=== PATIENT | female | born 1950 | race Caucasian/White ===

== ENCOUNTER → 2018-10-07 | Outpatient (CLI) | payer MEDICARE | END | disposition home or self-care (01) | LOC: RAH 10:59 | PROVIDERS: ATTEND Orthopaedic Surgery | DX: M19.012 Primary osteoarthritis, left shoulder (principal); M25.712 Osteophyte, left shoulder; M75.102 Unspecified rotator cuff tear or rupture of left shoulder, not specified as traumatic | CPT/HCPCS: 73221 ==

== ENCOUNTER 2018-10-31 05:57 | Day surgery (SDC) | payer MEDICARE ==
[2018-10-28 10:31] VITALS: BP 126/58
[~2018-10-31] VITALS: Ht 152.4 cm; Wt 74.8 kg
[2018-10-31] VITALS (17 sets, daily range): BP systolic 81–128; BP diastolic 49–70
[~2018-10-31 05:57] MED LIST: ARIP5TAB19 PO; B12 PO; BIOT10006 PO; DULO60CA63 PO; ESLI600T PO; ESOM40CA54 PO; FURO40TA5 PO; LEVO50TA11 PO; ROSU20TA30 PO; TOPI100T37 PO
[2018-10-31] MEDS: CEFAZOLIN SODIUM 1 GM VIAL IVP SCH ×2 (08:00→08:45)
--- NOTE | 2018-10-31 08:00 | NUR ---
POTENTIAL FOR INFECTION: NO SHAVING NEEDED TO LEFT SHOULDER STATED PER DEIRDRE BROWN MA, WIPED WITH RAMON: 2% CHLORHEXIDINE GLUCONATE CLOTH PATIENTS PRE-OP SKIN PREP PER DEIRDRE BROWN MA.
[2018-10-31] MEDS ORDERED: EPINEPHRINE 1 MG/ML 30ML VIAL IJ ONE (08:03)
[2018-10-31] MEDS ORDERED: LACTATED RINGERS 1000ML 1,000 ML IV ONE (08:11)
[2018-10-31] MEDS ORDERED: LIDOCAINE PF 2% 5ML ABBOJECT ONE (08:23)
[2018-10-31] MEDS ORDERED: ONDANSETRON HCL 4 MG/2 ML VIAL ONE (08:24)
[2018-10-31] MEDS ORDERED: PROPOFOL 10 MG/ML 20ML VIAL IV ONE (08:24)
[2018-10-31] MEDS ORDERED: ROCURONIUM 10MG/1ML SYR 10 MG/ML ML ONE ×2 (08:24→09:02)
[2018-10-31] MEDS ORDERED: ROPIVACAINE 0.5% 5MG/ML 30ML IJ ONE (08:28)
[2018-10-31] MEDS ORDERED: EPHEDRINE SULFATE 50 MG/ML AMPULE ONE (09:14)
[2018-10-31] MEDS ORDERED: GLYCOPYRROLATE 1 MG/5 ML SYRINGE ONE (10:29)
[2018-10-31] MEDS ORDERED: NEOSTIGMINE 5MG/5ML SYR IV ONE (10:29)
[2018-10-31] MEDS ORDERED: ESMOLOL HCL 10 MG/ML 10 ML VIAL ONE (10:35)
[2018-10-31] MEDS ORDERED: HYDR-4457 PO (10:42)
[2018-10-31] MEDS ORDERED: CEPH500B PO (10:42)
[2018-10-31] MEDS ORDERED: MEPERIDINE-PF 25 MG/ML SYG ONE ×2 (11:04→11:13)
== END 2018-10-31 12:26 | disposition home or self-care (01) ==
LOC: DAH 05:57
PROVIDERS: ATTEND Orthopaedic Surgery
DX: S43.52XA Sprain of left acromioclavicular joint, initial encounter (principal); X58.XXXA Exposure to other specified factors, initial encounter; Y93.9 Activity, unspecified; Y92.89 Other specified places as the place of occurrence of the external cause; Y99.9 Unspecified external cause status; M75.42 Impingement syndrome of left shoulder; M94.212 Chondromalacia, left shoulder; G89.29 Other chronic pain; M25.512 Pain in left shoulder; Z68.32 Body mass index [BMI] 32.0-32.9, adult; F31.9 Bipolar disorder, unspecified; R56.9 Unspecified convulsions; E03.9 Hypothyroidism, unspecified; K21.9 Gastro-esophageal reflux disease without esophagitis; M19.90 Unspecified osteoarthritis, unspecified site; Z79.899 Other long term (current) drug therapy; Z98.51 Tubal ligation status; Z98.890 Other specified postprocedural states; M19.012 Primary osteoarthritis, left shoulder
CPT/HCPCS: 29820; 29822; 29824; 29826; A4218; A4565; A4600; A4649 ×3; A4930 ×2; A6204; G0168; J0171; J0690; J2001; J2175 ×2; J2405; J2704; J2710; J2795; J3490 ×3; J7120

== ENCOUNTER → 2022-06-03 | Outpatient (CLI) | payer MEDICARE ==
[~2022-06-03] MED LIST changes: -ARIP5TAB19 PO; +ARIP5TAB56 PO; +CEPH500B PO; -DULO60CA63 PO; +DULO60CA64 PO; +HYDR-4457 PO; -ROSU20TA30 PO; +ROSU20TA31 PO
== END | disposition home or self-care (01) ==
LOC: RAH 09:19
PROVIDERS: ATTEND Surgery
DX: K44.9 Diaphragmatic hernia without obstruction or gangrene (principal)
CPT/HCPCS: 74240

== ENCOUNTER → 2022-06-24 | Outpatient (CLI) | payer MEDICARE ==
[~2022-06-24] MED LIST changes: +IOHEXOL 350 MG/ML 100ML INFUS..BTL IV ONE
== END | disposition home or self-care (01) ==
LOC: RAH 08:42
PROVIDERS: ATTEND Internal Medicine Cardiovascular Disease
DX: K44.9 Diaphragmatic hernia without obstruction or gangrene (principal); I20.9 Angina pectoris, unspecified; M47.815 Spondylosis without myelopathy or radiculopathy, thoracolumbar region
CPT/HCPCS: 75574; Q9967

== ENCOUNTER → 2022-06-30 | Outpatient (CLI) | payer OTHER ==
[~2022-06-30] VITALS: Ht 27.9 cm; Wt 87.1 kg
[~2022-06-30] MED LIST changes: -IOHEXOL 350 MG/ML 100ML INFUS..BTL IV ONE
== END | disposition home or self-care (01) ==
LOC: DTH 08:56
PROVIDERS: ATTEND Surgery
DX: Z71.3 Dietary counseling and surveillance (principal); E78.00 Pure hypercholesterolemia, unspecified; K21.9 Gastro-esophageal reflux disease without esophagitis; M19.91 Primary osteoarthritis, unspecified site; E66.09 Other obesity due to excess calories; Z68.38 Body mass index [BMI] 38.0-38.9, adult
CPT/HCPCS: 97802

== ENCOUNTER → 2022-08-03 | Outpatient (CLI) | payer OTHER | END | disposition home or self-care (01) | LOC: DTH 09:11 | PROVIDERS: ATTEND Surgery | DX: Z71.3 Dietary counseling and surveillance (principal); E78.00 Pure hypercholesterolemia, unspecified; K21.9 Gastro-esophageal reflux disease without esophagitis; M19.91 Primary osteoarthritis, unspecified site; E66.09 Other obesity due to excess calories; Z68.38 Body mass index [BMI] 38.0-38.9, adult | CPT/HCPCS: 97803 ==

== ENCOUNTER → 2024-08-03 | Outpatient (CLI) | payer MEDICARE ==
[~2024-08-03] MED LIST changes: +ARIP5TAB16 PO; -ARIP5TAB56 PO; -B12 PO; -BIOT10006 PO; -CEPH500B PO; +DULO60CA45 PO; -DULO60CA64 PO; -ESLI600T PO; -ESOM40CA54 PO; +FAMO40TA7 PO; -FURO40TA5 PO; -HYDR-4457 PO; +IOHEXOL-350 75 ML VIAL IV ONE; +PANT40TA54 PO; -ROSU20TA31 PO; +ROSU40 PO
--- NOTE | 2024-08-03 09:47 | HMCIMG ---
CT ABDOMEN/PELVIS W/CONTRAST REASON: DIAPHRAMATIC HERNIA WITHOUT OBSTUCTION OR GANGRENE COMPARISON: None. TECHNIQUE: Images are obtained from lung bases through the symphysis pubis following oral and IV contrast. IV contrast volume was 75 cc Omnipaque [id number]. FINDINGS: Lung bases are clear. There are no focal liver lesions. There are normal-appearing kidneys.. Spleen and pancreas appear unremarkable. The gallbladder appears normal as well. There is a small hiatal hernia containing a portion of the stomach. Bowel loops appear otherwise unremarkable.. The appendix was not separately identified. There is no secondary CT evidence of appendicitis such as appendicolith or phlegmon. There is no evidence of free fluid or intraperitoneal air. There are no focal fluid collections. Aorta and retroperitoneum appear normal as do pelvic soft tissue structures. The anterior abdominal wall is intact. Osseous structures appear unremarkable. IMPRESSION: 1. Small hiatal hernia containing a portion of the stomach. 2. Otherwise unremarkable exam. CT was performed with one or more following dose reduction techniques: automated exposure control, adjustment of the mA and kv according to patient's size, or use of a iterative reconstruction technique.
== END | disposition home or self-care (01) ==
LOC: RAH 08:06
PROVIDERS: ATTEND Student in an Organized Health Care Education/Training Program
DX: K44.9 Diaphragmatic hernia without obstruction or gangrene (principal)
CPT/HCPCS: 74177; Q9967

== ENCOUNTER 2025-01-10 05:42 | Day surgery (SDC) | payer MEDICARE ==
[~2025-01-10] VITALS: Ht 142.2 cm; Wt 55.3 kg
[2025-01-10] VITALS (11 sets, daily range): BP systolic 95–117; BP diastolic 54–80; PULSE 63–83; RESP 15–18; TEMP 97.1–97.5
[~2025-01-10 05:42] MED LIST changes: +BIOT10TA PO; +FURO40TA5 PO; -IOHEXOL-350 75 ML VIAL IV ONE; +POTA-200 PO; +TOPI-258 PO; -TOPI100T37 PO; +[UNRECOGNIZED DRUG - OTHER] PO
[2025-01-10] MEDS ORDERED: 0.9%NACL 1000ML 1,000 ML IV ONE (05:56)
[2025-01-10] MEDS ORDERED: proPOFol 10 MG/ML 20ML VIAL IV ONE (07:14)
[2025-01-10] MEDS ORDERED: LIDOCAINE PF 100MG/5ML (2%) SYRINGE 5ML ONE (07:14)
== END 2025-01-10 09:30 | disposition home or self-care (01) ==
LOC: DAH 05:42
PROVIDERS: ATTEND Surgery
DX: K30 Functional dyspepsia (principal); K21.00 Gastro-esophageal reflux disease with esophagitis, without bleeding; K52.9 Noninfective gastroenteritis and colitis, unspecified; K44.9 Diaphragmatic hernia without obstruction or gangrene; F41.9 Anxiety disorder, unspecified; M81.0 Age-related osteoporosis without current pathological fracture; K22.70 Barrett's esophagus without dysplasia; Z98.84 Bariatric surgery status; E66.01 Morbid (severe) obesity due to excess calories; K59.00 Constipation, unspecified; M19.90 Unspecified osteoarthritis, unspecified site; F31.9 Bipolar disorder, unspecified; Z86.0100 Personal history of colon polyps, unspecified; Z90.89 Acquired absence of other organs; Z98.51 Tubal ligation status; Z79.899 Other long term (current) drug therapy
CPT/HCPCS: 43239; J7030; J2003; J2704; A4620; A4215 ×2; A4223; A4657; A4222; A4221; A4663; A4606; J3490

== ENCOUNTER 2025-06-22 08:19 | Observation (INO) | payer MEDICARE ==
[~2025-06-22] VITALS: Ht 147.3 cm; Wt 54.4 kg
[2025-06-22 08:51] LABS: NUCLEATED RED BLOOD CELLS 0.0 % (0.0-0.19); PLATELET COUNT (AUTO) 324.0 K/uL (130-400); RED BLOOD CELL COUNT(AUTO) 3.78 MIL/uL (4.00-5.50); RED CELL DISTRIBUTION WIDTH 17.1 % (11.0-15.5); WHITE BLOOD COUNT (AUTO) 5.5 K/uL (4.8-10.8)
[2025-06-22 08:58] LABS: CREATININE 0.8 mg/dL (0.5-1.0); GLOMERULAR FILTR. RATE CALC 77.0 mL/min (>90); GLUCOSE,RANDOM 131.0 mg/dL (70-105); SODIUM SERUM 140.0 mmol/L (136-145); UREA NITROGEN, BLOOD 12.0 mg/dL (7-18)
--- NOTE | 2025-06-22 10:33 | ERN ---
General Chief Complaint: Abnormal Labs Stated Complaint: ABNORMAL LABS Time Seen by MD: 08:21 Source: patient History of Present Illness Initial Comments Patient is a 75-year-old female sent over from PCP's office due to low potassium. Per patient this has been an ongoing issue she does take Lasix and states that she was seen by her PCP and sent in for further evaluation. Allergies: Coded Allergies: No Known Allergies (Unverified Allergy, Unknown, 10/28/18) Home Meds Active Scripts Pantoprazole Sodium (Protonix) 40 Mg Ectab, 40 MG PO BID for 30 Days, #60 TAB.EC Prov:[facility] 01/25/25 Cefdinir (Cefdinir) 300 Mg Capsule, 1 CAP PO BID for 7 Days, #14 CAP 0 Refills Prov:[facility] 01/25/25 Reported Medications Potassium Chloride (Potassium Chloride) 10 Meq Tab.er.prt, 1 TAB PO BID for 30 Days, #30 TAB 0 Refills 11/27/24 [Nutraful Womans ] No Conflict Check, 480 MG PO BID 11/27/24 Biotin (Biotin) 10 Mg Tablet, 10 MG PO BID, TAB 11/27/24 Rosuvastatin Calcium (Crestor) 40 Mg Tab, 20 MG PO HS, TAB 06/19/24 Famotidine (Famotidine) 40 Mg Tablet, 40 MG PO DAILY, TAB 11/13/22 Duloxetine HCl (Cymbalta) 60 Mg Capsule.dr, 60 MG PO DAILY, CAP 11/13/22 Aripiprazole (Abilify) 5 Mg Tablet, 5 MG PO HS, TAB 11/13/22 Topiramate (Topiramate) 100 Mg Tablet, 150 MG PO BID, TAB 10/28/18 Levothyroxine Sodium (Levothyroxine Sodium) 50 Mcg Tablet, 50 MCG PO ACBKFST, TAB 10/28/18 Past Medical History Past Medical History: No Pertinent History Past Surgical History: Other Surgical History Other: HERNIA REPAIR ROS Dictation CONSTITUTIONAL: No chills, no fever, no weakness, no diaphoresis, no malaise. HEAD/FACE: No signs of trauma. EENT: No eye pain, no blurred vision, no tearing, no double vision, no ear pain, no ear discharge, no nose pain, no nasal congestion, no throat pain, no throat swelling, no mouth pain. RESPIRATORY: No cough, no orthopnea, no SOB, no stridor, no wheezing. CARDIOVASCULAR: No chest pain, no edema, no palpitations, no syncope. GASTROINTESTINAL/ABDOMINAL: No abdominal pain, no constipation, no diarrhea, no nausea, no vomiting. GENITOURINARY: No abnormal discharge, no dysuria, no frequent urination, no hematuria. No complaints of pain in the genitals. MUSCULOSKELETAL: No back pain, no gout, no joint pain, no joint swelling, no muscle pain, no muscle stiffness, no neck pain. INTEGUMENTARY: No change in color, no change in hair/nails, no dryness, no lesion, no lumps, no rash. NEUROLOGICAL/PSYCH: No anxiety, not depressed, no emotional problem, no headache, no numbness, no pre-existing deficit, no history of seizures, no tremors, no weakness. HEMATOLOGIC/LYMPHATIC: Not anemic, no history of blood clots, no apparent bleeding, no bruising, glands not swollen. All Systems Negative, Except as Noted. Physical Exam Physical Exam Dictation VITAL SIGNS: Reviewed. GENERAL APPEARANCE: Alert, oriented x3, no acute distress, obese. HEAD AND FACE: Non-traumatic. EYES: PERRL, pink conjunctivas, eyelid no trauma, anterior chamber clear. EARS: Pinnas intact and no signs of trauma or erythema. Ear canals clear and no discharge. TMs no erythema. NOSE: No discharge, no bleeding. OROPHARYNX: Mouth normal, teeth no caries, tongue pink. Pharynx clear, no erythema. Tonsils no exudates, no abscesses noted. Mucous membrane moist. NECK: Supple, non-tender, no thyromegaly, no masses, no JVD, no bruits. BREAST: Deferred. CHEST: No tenderness, no crepitus, no paradoxical movement, no retractions. LUNGS: Clear, well-ventilated, symmetric, no rales, no wheezing, no rhonchi, no stridor, good breath sounds bilaterally. HEART: Regular rate, regular rhythm, no murmur, no gallops. VASCULAR: No peripheral edema. ABDOMEN: Soft, positive bowel sounds, nondistended, no guarding, nontender, no rebound, no masses no hepatomegaly, no splenomegaly, no Bedoya's sign, no hernias. RECTAL: Deferred. GENITAL: Deferred. NEUROLOGICAL: Normal speech, gross motor function intact, gross sensory function intact. MUSCULOSKELETAL: Neck nontender, full range of motion, back nontender, full range of motion. EXTREMITIES: Nontender, full range of motion. SKIN: Color pink, dry, no turgor, no rash, no lacerations, no abrasions, no contusions. LYMPHATICS: Deferred. Results Laboratory and Microbiology Lab and Micro Result Laboratory Tests Test 06/22/25 08:40 06/22/25 11:34 White Blood Count 5.5 K/uL (4.8-10.8) Red Blood Count 3.78 MIL/uL (4.00-5.50) L Hemoglobin 11.2 g/dL (12.0-16.0) L Hematocrit 34.9 % (36-48) L Mean Corpuscular Volume 92.3 fL (79-99) Mean Corpuscular Hemoglobin 29.6 pg (27.0-33.0) Mean Corpuscular Hemoglobin Concent 32.1 g/dL (32.0-36.0) Red Cell Distribution Width 17.1 % (11.0-15.5) H Platelet Count 324 K/uL (130-400) Mean Platelet Volume 9.9 fL (7.5-10.5) Nucleated Red Blood Cells 0.0 % (0.0-0.19) Sodium Level 140 mmol/L (136-145) Potassium Level 2.6 mmol/L (3.5-5.1) *L 2.9 mmol/L (3.5-5.1) *L Chloride Level 103 mmol/L (101-111) Carbon Dioxide Level 30 mmol/L (21-32) Blood Urea Nitrogen 12 mg/dL (7-18) Creatinine 0.8 mg/dL (0.5-1.0) Glomerular Filtration Rate Calc 77 mL/min (>90) Random Glucose 131 mg/dL (70-105) H Total Calcium 8.1 mg/dL (8.5-10.1) L Magnesium Level 2.20 mg/dL (1.80-2.40) Labs Reviewed?: Yes MDM MDM: Differential diagnosis: Hypokalemia, Lasix use Rationale: Tests considered and ordered secondary to shared decision making include: Previous outside records reviewed: Old ER visits. Risk of complication and/or morbidity or mortality of patient management: None Medications-Per medication reconciliation Need for hospitalization: Patient does meet criteria for hospitalization. Need for emergency major/minor surgery: No There are no social concerns with this patient. Prescription drug management Prescriptions will include symptomatic care Patient's prior external medical records from other ER visits were reviewed by me as indicated. Prior testing and results from previous visits were reviewed. Prior tests were taken into account with medical decision making and resource utilization, independent historian/historians were used to obtain complete medical history. I independently interpreted the test that were performed, results were reviewed by me and considered findings on radiology if ordered. Medical management and examination interpretation discussions were had by me with other qualified healthcare professionals as indicated for the patient's care. Patient will be admitted under the care of hospitalist group ED Course Orders Procedure Category Date Status Time Cbc Without LAB 06/22/25 Complete Differential 08:25 Basic Metabolic Panel LAB 06/22/25 Complete 08:25 Magnesium LAB 06/22/25 Complete 08:25 Potassium Bicarb/Cit PHA 06/22/25 Complete Ac 25meq (K-Lyte Ta 09:30 Potassium Chloride PHA 06/22/25 Complete 10meq/100ml (Potassiu 09:30 Potassium LAB 06/22/25 Complete 09:28 Current Medications Medications (Trade) Dose Ordered Sig/Deja Route PRN Reason Start Time Stop Time Status Last Admin Dose Admin Potassium Bicarbonate (K-Lyte Tablet Eff 25 Meq Tablet.eff) 50 meq ONCE ONCE PO 06/22/25 09:30 06/22/25 09:31 DC 06/22/25 09:29 Potassium Chloride 100 ml @ 100 mls/hr ONCE ONCE IV 06/22/25 09:30 06/22/25 10:29 DC 06/22/25 09:29 Vital Signs Date Time Temp Pulse Resp B/P (MAP) Pulse Ox O2 Delivery O2 Flow Rate FiO2 06/22/25 10:03 97.9 82 18 120/68 99 Room Air* 0 21 06/22/25 08:36 97.9 69 18 103/63 98 Room Air* 0 21 06/22/25 08:21 97.7 73 20 105/42 99 Room Air DX & DISP Disposition: Inpatient Decision to Admit Time: 12:38 Departure Impression: Primary Impression: Hypokalemia Additional Impression: Electrolyte abnormality Condition: Stable Referrals: KOBI STANLEYPCP) JABIER DURON MD Jun 22, 2025 10:33
[2025-06-22] MEDS ORDERED: PoTASSium chloRIDE 20MEQ ER 20 MEQ ERTAB PO PRN (13:00)
[2025-06-22] MEDS ORDERED: MAGNESIUM 2GM PREMIX 50ML 50 ML IV SCH (13:30)
[2025-06-22 13:36] LABS: APPEARANCE,URINE CLEAR (CLEAR); GLUCOSE, URINE (UA) NEGATIVE (NEGATIVE); LEUKOCYTE ESTERASE ,URINE NEGATIVE Leu/uL (NEGATIVE); NITRATE,URINE NEGATIVE (NEGATIVE); OCCULT BLOOD,URINE NEGATIVE (NEGATIVE)
[2025-06-22] MEDS: LACTATED RINGERS 1000ML 1,000 ML IV SCH (13:38)
[2025-06-22] MEDS: PoTASSium chl 10% ELIXIR 20MEQ 20 MEQ/15 ML UDCUP PO PRN (13:38)
[2025-06-22 13:46] LABS: ADD UA MICROSCOPIC NO
--- NOTE | 2025-06-22 13:58 | HMCIMG ---
EXAM: US for Deep Venous Thrombosis, bilateral Lower Extremity. CLINICAL HISTORY: Leg Pain and Swelling TECHNIQUE: Real-time ultrasound scan of the veins of the bilateral lower extremity with color Doppler flow, spectral waveform analysis and compression. COMPARISON: None provided. FINDINGS: DEEP VEINS: The common femoral, superficial femoral, and popliteal veins are echolucent and compressible. There is normal color Doppler flow throughout. The visualized calf veins appear patent. SOFT TISSUES: No popliteal fossa cyst or other abnormalities. IMPRESSION: No deep venous thrombosis evident on bilateral lower extremity examination. /[place]ala
--- NOTE | 2025-06-22 15:46 | NUR ---
FIRST ATTEMPT AT CALLING REPORT
--- NOTE | 2025-06-22 16:19 | NUR ---
REPORT GIVEN TO NURSE SALO
[2025-06-22 17:00] VITALS: O2SAT 98
[2025-06-22 19:03] LABS: CREATININE 0.9 mg/dL (0.5-1.0); GLOMERULAR FILTR. RATE CALC 67.0 mL/min (>90); GLUCOSE,RANDOM 173.0 mg/dL (70-105); SODIUM SERUM 139.0 mmol/L (136-145); UREA NITROGEN, BLOOD 12.0 mg/dL (7-18)
[2025-06-22 20:00] VITALS: BP 91/58; PULSE 74; RESP 16; TEMP 97.9; O2SAT 98
--- NOTE | 2025-06-22 22:28 | HP ---
[facility] HISTORY AND PHYSICAL Date of Service: Jun 22, 2025 Time of Service: 22:19 HISTORY OF PRESENT ILLNESS: Date of service: 06/22/2025, patient was seen in ER room 18 This is a 75-year-old previous history of hiatal hernia, GERD, hyperlipidemia, hypothyroidism, bipolar disorder, seizure disorder, history of recurrent hospitalization for hypokalemia who presented to the ER further evaluation of low potassium. Patient states that she had routine labs performed by PCP and she was noted to have significantly low potassium and was referred to the ER. Patient denies any active symptoms. she denies any palpitations, shortness of breath, chest pain or myalgias. Patient states that she has a history of lower extremities swelling intermittently and she takes outpatient Lasix. She is unable to recall the dose of Lasix. She has been taking Lasix for long time. She denies any history of heart failure or chronic kidney disease. Patient has been hospitalized previously around 3 times this year for recurrent hypokalemia. She has a previous history of sleeve gastrectomy and history of robotic associated Taniya-en-Y gastric bypass in 11/2024 due to severe acid ref lux. Patient reports being on oral potassium supplementation as outpatient. She is unsure if she is followed by Nephrology as outpatient. On presentation to the hospital, patient was noted to be afebrile and hemodynamically stable. Labs on presentation showed WBC count of 8500, hemoglobin 11.2, platelet count of [id number]. BMP showed sodium of 140, potassium of 2.6, chloride of 103, BUN of 12, creatinine of 0.8, magnesium 2.2 with BNP of 169. Patient will be admitted under hospitalist service for management of [id number] hypokalemia. Patient will be started on aggressive potassium replacement. Lasix will be stopped likely contributing towards the hypokalemia, consultation with Nephrology will be requested, and she will undergo further workup of recurrent hypokalemia recurrent hospitalization. We will see how patient progresses in the next 24-48 hours. REVIEW OF SYSTEMS CONSTITUTIONAL: Denies fevers, chills, or night sweats. No unintentional weight loss reported. NEUROLOGICAL: Denies headache, amaurosis fugax, motor weakness, sensory deficit, vertigo/spinning sensation, gait abnormalities, or tremors. ENT: No hearing loss, otalgia, otorrhea, rhinitis, rhinorrhea, hoarseness, or sore throat. CARDIOVASCULAR: Denies any exertional angina, dyspnea on exertion, orthopnea, paroxysmal nocturnal dyspnea, palpitations, life-threatening arrhythmias, claudication. PULMONARY: Denies any shortness of breath, cough, phlegm/sputum, hemoptysis, pleuritic chest pain. SLEEP: Denies morning headaches, daytime somnolence or napping. Denies difficulty falling asleep, staying asleep, waking from sleep. Denies knowledge of snoring. GASTROINTESTINAL: Denies any type of dysphagia to either liquids or solids. Denies nausea, vomiting, pyrosis, early satiety, abdominal pain, diarrhea, constipation, or changes in stool consistency or caliber. Denies coffee-ground emesis, hematemesis, hematochezia, or melanotic stools. GENITOURINARY: Denies frequency, urgency, nocturia, hematuria or incontinence (Storage/Irritative symptoms.) Low urinary stream, straining to void, urinary intermittency or hesitancy, splitting of the voiding stream, terminal dribbling. ENDOCRINOLOGIC: Denies polyuria, polydipsia, polyphagia or heat/cold intolerances. HEMATOLOGIC: Denies thrombophilia/previous clots, or coagulopathy/bleeding disorders. ONCOLOGIC: Denies personal history of malignancy. DERMATOLOGIC: Denies rashes or pruritus. PSYCHIATRIC: Denies any suicidal or homicidal ideation. Denies hallucinations. PAST MEDICAL HISTORY: History of hiatal hernia, GERD, hyperlipidemia, hypothyroidism, bipolar disorder, seizure disorder PAST SURGICAL HISTORY: History of sleeve gastrectomy, history of Robotic assisted revision of sleeve gastrectomy to Taniya-en-Y gastric bypass for the purposes of treating recalcitrant reflux done in November 2024 PAST SOCIAL HISTORY: Denied any smoking, alcohol, drug use FAMILY HISTORY: Denied any pertinent family history Allergies: no known drug allergies Home medications: Patient did not bring list of her home medications, home medications from previous admission include Protonix 40 mg daily, biotin 10 mg b.i.d., potassium chloride, Crestor time, Abilify 5 mg at bedtime, Cymbalta 60 mg daily, famotidine 40 mg daily, levothyroxine 50 mcg daily, topiramate 150 mg b.i.d. Coded Allergies: No Known Allergies (Unverified Allergy, Unknown, 10/28/18) PHYSICAL EXAM GENERAL APPEARANCE: The patient is awake, alert, and oriented, in no acute cardiopulmonary distress. NEUROLOGICAL: Cranial nerves II-XII grossly intact. Motor is 5/5 in bilateral upper and lower extremities proximal to distal. No sensory deficits. HEENT: Face is symmetric. Pupils are equal and reactive. Extraocular movements are intact. NECK: Supple. No JVD. No thyromegaly. No submental, submandibular, pre- /postauricular, occipital or supraclavicular lymphadenopathy. CHEST: Normal chest expansion. No Telemetry. LUNGS: Absence of any rales, rhonchi or any wheezing. CARDIOVASCULAR: Regular. S1 and S2 normal. No appreciable rubs, murmurs or gallops. ABDOMEN: Soft, nontender, and nondistended. There is no rebound, voluntary guarding, or rigidity. : Deferred. No Pearl. EXTREMITIES: Non-edematous and not cyanotic. No clubbing. Good capillary refill. SKIN: No skin breakdown. Vital Sign (Last 24 Hours) 06/22/25 06/22/25 17:00 20:00 Temp 97.9 Pulse 74 Resp 16 B/P (MAP) 91/58 Pulse Ox 98 O2 Delivery Room Air O2 Flow Rate 0 FiO2 21 LABS: Laboratory: Test 06/22/25 18:30 06/22/25 08:40 06/22/25 08:30 Range/Units Sodium Level 139 136-145 mmol/L Potassium Level 3.0 *L 3.5-5.1 mmol/L Chloride Level 105 101-111 mmol/L Carbon Dioxide Level 30 21-32 mmol/L Blood Urea Nitrogen 12 7-18 mg/dL Creatinine 0.9 0.5-1.0 mg/dL Glomerular Filtration Rate Calc 67 >90 mL/min Random Glucose 173 H 70-105 mg/dL Total Calcium 7.6 L 8.5-10.1 mg/dL White Blood Count 5.5 4.8-10.8 K/uL Red Blood Count 3.78 L 4.00-5.50 MIL/uL Hemoglobin 11.2 L 12.0-16.0 g/dL Hematocrit 34.9 L 36-48 % Mean Corpuscular Volume 92.3 79-99 fL Mean Corpuscular Hemoglobin 29.6 27.0-33.0 pg Mean Corpuscular Hemoglobin Concent 32.1 32.0-36.0 g/dL Red Cell Distribution Width 17.1 H 11.0-15.5 % Platelet Count 324 130-400 K/uL Mean Platelet Volume 9.9 7.5-10.5 fL Nucleated Red Blood Cells 0.0 0.0-0.19 % Magnesium Level 2.20 1.80-2.40 mg/dL B-Type Natriuretic Peptide 169 H 0-100 pg/mL Urine Color COLORLESS YELLOW Urine Appearance CLEAR CLEAR Urine pH 7.0 5.0-8.0 Urine Specific [place] 1.005 1.001-1.031 Urine Protein NEGATIVE NEGATIVE mg/dL Urine Glucose (UA) NEGATIVE NEGATIVE mg/dL Urine Ketones NEGATIVE NEGATIVE mg/dL Urine Occult Blood NEGATIVE NEGATIVE Urine Nitrate NEGATIVE NEGATIVE Urine Bilirubin NEGATIVE NEGATIVE mg/dL Urine Urobilinogen 0.2 0.2-1.0 mg/dL Urine Leukocyte Esterase NEGATIVE NEGATIVE Mauricio/uL Current Medications Medications (Trade) Dose Ordered Sig/Deja Route PRN Reason Start Time Stop Time Status Last Admin Dose Admin Acetaminophen (TYLenol 325MG TAB) 650 mg Q6H PRN PO MILD PAIN (1-3) 06/22/25 13:30 07/22/25 13:29 Aripiprazole (AbiliFY 5MG TABLET) 5 mg HS PO 06/22/25 21:00 07/22/25 20:59 06/22/25 21:30 5 MG Atorvastatin Calcium (LIPItor 40MG) 80 mg HS PO 06/22/25 21:00 07/22/25 20:59 06/22/25 21:29 80 MG Duloxetine HCl (CymbALTA 30 mg CAP) 60 mg DAILY PO 06/23/25 09:00 07/23/25 08:59 Home Med (Home Medication) (Biotin 10 MG) BID PO 06/22/25 21:00 07/22/25 20:59 Lactated Ringer's 1,000 ml @ 50 mls/hr Q20H IV 06/22/25 13:00 07/22/25 12:59 06/22/25 13:38 50 MLS/HR Levothyroxine Sodium (SYNTHroid 50MCG TAB) 50 mcg SYN PO 06/23/25 06:30 07/23/25 06:29 Magnesium Sulfate 50 ml @ 0 mls/hr PROTOCOL IV 06/22/25 13:30 07/22/25 13:29 Miscellaneous Medication (Famotidine ) 40 mg DAILY PO 06/23/25 09:00 06/22/25 13:17 DC Ondansetron HCl (zoFRAN 4MG INJ) 4 mg Q6H PRN IVP NAUSEA/VOMITING 06/22/25 13:30 07/22/25 13:29 Pantoprazole Sodium (PROTonix 40MG TAB) 40 mg BID PO 06/22/25 21:00 07/22/25 20:59 06/22/25 21:29 40 MG Potassium Chloride 100 ml @ 100 mls/hr AD PRN IV POTASSIUM PROTOCOL 06/22/25 13:00 07/22/25 12:59 06/22/25 21:31 100 MLS/HR Potassium Chloride (K-Dur/Klor-Con 20meq) 20 meq AD PRN PO POTASSIUM PROTOCOL 06/22/25 13:00 07/22/25 12:59 Potassium Chloride (KCl 10% Elixir 20meq/15ml) 20 meq AD PRN PO POTASSIUM PROTOCOL 06/22/25 13:00 07/22/25 12:59 06/22/25 21:46 20 MEQ Topiramate (TopaMAX) 150 mg BID PO 06/22/25 21:00 07/22/25 20:59 06/22/25 21:30 150 MG DIAGNOSTICS / RADIOLOGY: SERVICE 1303 REASON: lower extremity edema, r/o any DVT ORDERING PHYSICIAN: POLO MAHAJAN MD PROCEDURE: VENOUS SWAPNIL - US VENOUS DOPPLER BILATERAL EXAM: US for Deep Venous Thrombosis, bilateral Lower Extremity. CLINICAL HISTORY: Leg Pain and Swelling TECHNIQUE: Real-time ultrasound scan of the veins of the bilateral lower extremity with color Doppler flow, spectral waveform analysis and compression. COMPARISON: None provided. FINDINGS: DEEP VEINS: The common femoral, superficial femoral, and popliteal veins are echolucent and compressible. There is normal color Doppler flow throughout. The visualized calf veins appear patent. SOFT TISSUES: No popliteal fossa cyst or other abnormalities. IMPRESSION: No deep venous thrombosis evident on bilateral lower extremity examination. /[place] DICTATED BY: SUNSHINE RAMIREZ Jr., MD DATE: 06/22/25 4628 ELECTRONICALLY SIGNED BY: SUNSHINE RAMIREZ Jr., MD DATE: 06/22/251455 ASSESSMENT: Severe hypokalemia, POA History of recurrent hypokalemia requiring frequent hospitalizations, POA History of diuretic use as outpatient with Lasix, POA History of hypertension, POA 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 in setting of severe gastroesophageal reflux, 11/2024, POA hyperlipidemia, POA Bipolar disorder, POA Seizure disorder, POA Hypothyroidism, POA PLAN: Patient will be admitted to cardiac telemetry floor Potassium will be aggressively repleted per protocol, we will use potassium elix ir for potassium replacement Check urine potassium to assess for renal losses Consultation with Nephrology will be requested Diuretics with Lasix will be held until potassium as well repleted We will obtain a venous Doppler to rule out any occult DVT, we will obtain 2D echocardiogram to assess LVEF, if patient has no history of heart failure, it may be prudent to decrease the dose of Lasix or it can be used as PRN to assist with management of lower extremity edema, instead of patient taking it daily, we will have Nephrology follow up as well All labs will be repeated in the morning, we will obtain iron panel We will keep patient on gentle IV hydration with LR at 50 mL/hour Discussed with patient to have family bring list of home medications so it can be reconciled and updated BMP will be checked q.6 hours tonight Date of service: 06/22/2025 Plan of care was discussed with patient family at bedside, anticipate hospitalization for at least 24-48 hours Polo Mahajan MD Advanced Care Planning: Which of the following were discussed: Hospice care: Yes __ No _X_ Therapeutic options: Yes _X_ No __ Advance directives: Yes _X_ No __ Other discussions: Discussed with who?: Patient Voluntary nature of this service was explained to the patient? Yes _x_ No __ Amount of time spent: 20 minutes POLO MAHAJAN MD Jun 22, 2025 22:28
[2025-06-22 23:19] VITALS: BP 92/57; PULSE 74; RESP 16; TEMP 98
[2025-06-23] VITALS (7 sets, daily range): BP systolic 81–102; BP diastolic 50–66; PULSE 70–82; RESP 16–18; TEMP 97.8–98.3; O2SAT 97–98
[2025-06-23 05:20] LABS: IMMATURE GRANULOCYTE ABSOLUTE 0.01 K/uL (0-1); NUCLEATED RED BLOOD CELLS 0.0 % (0.0-0.19); PLATELET COUNT (AUTO) 223 K/uL (130-400); RED BLOOD CELL COUNT(AUTO) 3.16 MIL/uL (4.00-5.50); RED CELL DISTRIBUTION WIDTH 17.1 % (11.0-15.5); WHITE BLOOD COUNT (AUTO) 5.3 K/uL (4.8-10.8)
[2025-06-23 05:42] LABS: % IRON SATURATION 10.4 % (22-44); IRON, SERUM 28.0 mcg/dL (50-170)
[2025-06-23 05:59] LABS: ASPARTATE AMINOTRANSFERASE 49.0 U/L (10-37); CREATININE 0.8 mg/dL (0.5-1.0); GLOMERULAR FILTR. RATE CALC 77.0 mL/min (>90); GLUCOSE,RANDOM 77.0 mg/dL (70-105); SODIUM SERUM 142.0 mmol/L (136-145); TOTAL PROTEIN, SERUM 5.0 g/dL (6.0-8.3); UREA NITROGEN, BLOOD 12.0 mg/dL (7-18)
[2025-06-23] MEDS ORDERED: NON-FORMULARY MEDICATION 1 EACH (Famotidine 40 MG) PO SCH (09:00)
--- NOTE | 2025-06-23 09:39 | PN ---
[facility] PROGRESS NOTE Date of Service: Jun 23, 2025 Time of Service: 09:35 SUBJECTIVE: Follow up visit for a 75-year-old female admitted to the hospital for recurrent hypokalemia. Patient received aggressive potassium replacement. This morning labs potassium is 4.4. Consultation with Nephrology has been requested pending evaluation. REVIEW OF SYSTEMS CONSTITUTIONAL: Denies fevers, chills, or night sweats. No unintentional weight loss reported. NEUROLOGICAL: Denies headache, amaurosis fugax, motor weakness, sensory deficit, vertigo/spinning sensation, gait abnormalities, or tremors. ENT: No hearing loss, otalgia, otorrhea, rhinitis, rhinorrhea, hoarseness, or sore throat. CARDIOVASCULAR: Denies any exertional angina, dyspnea on exertion, orthopnea, paroxysmal nocturnal dyspnea, palpitations, life-threatening arrhythmias, claudication. PULMONARY: Denies any shortness of breath, cough, phlegm/sputum, hemoptysis, pleuritic chest pain. SLEEP: Denies morning headaches, daytime somnolence or napping. Denies difficulty falling asleep, staying asleep, waking from sleep. Denies knowledge of snoring. GASTROINTESTINAL: Denies any type of dysphagia to either liquids or solids. Denies nausea, vomiting, pyrosis, early satiety, abdominal pain, diarrhea, constipation, or changes in stool consistency or caliber. Denies coffee-ground emesis, hematemesis, hematochezia, or melanotic stools. GENITOURINARY: Denies frequency, urgency, nocturia, hematuria or incontinence (Storage/Irritative symptoms.) Low urinary stream, straining to void, urinary intermittency or hesitancy, splitting of the voiding stream, terminal dribbling. ENDOCRINOLOGIC: Denies polyuria, polydipsia, polyphagia or heat/cold intolerances. HEMATOLOGIC: Denies thrombophilia/previous clots, or coagulopathy/bleeding disorders. ONCOLOGIC: Denies personal history of malignancy. DERMATOLOGIC: Denies rashes or pruritus. PSYCHIATRIC: Denies any suicidal or homicidal ideation. Denies hallucinations. PHYSICAL EXAM GENERAL APPEARANCE: The patient is awake, alert, and oriented, in no acute cardiopulmonary distress. NEUROLOGICAL: Cranial nerves II-XII grossly intact. Motor is 5/5 in bilateral upper and lower extremities proximal to distal. No sensory deficits. HEENT: Face is symmetric. Pupils are equal and reactive. Extraocular movements are intact. NECK: Supple. No JVD. No thyromegaly. No submental, submandibular, pre-/ postauricular, occipital or supraclavicular lymphadenopathy. CHEST: Normal chest expansion. No Telemetry. LUNGS: Absence of any rales, rhonchi or any wheezing. CARDIOVASCULAR: Regular. S1 and S2 normal. No appreciable rubs, murmurs or gallops. ABDOMEN: Soft, nontender, and nondistended. There is no rebound, voluntary guarding, or rigidity. : Deferred. No Pearl. EXTREMITIES: Non-edematous and not cyanotic. No clubbing. Good capillary refill. SKIN: No skin breakdown. Vital Signs (last 8hr) Date Time Temp Pulse Resp B/P (MAP) Pulse Ox O2 Delivery O2 Flow Rate FiO2 06/23/25 04:00 98.1 82 16 84/53 97 Room Air LABS: Laboratory: Test 06/23/25 04:56 06/22/25 08:40 06/22/25 08:30 Range/Units White Blood Count 5.3 4.8-10.8 K/uL Red Blood Count 3.16 L 4.00-5.50 MIL/uL Hemoglobin 9.3 L 12.0-16.0 g/dL Hematocrit 29.1 L 36-48 % Mean Corpuscular Volume 92.1 79-99 fL Mean Corpuscular Hemoglobin 29.4 27.0-33.0 pg Mean Corpuscular Hemoglobin Concent 32.0 32.0-36.0 g/dL Red Cell Distribution Width 17.1 H 11.0-15.5 % Platelet Count 223 # 130-400 K/uL Mean Platelet Volume 9.6 7.5-10.5 fL Immature Granulocyte % (Auto) 0.2 0-1 % Neutrophils (%) (Auto) 41.3 40.0-77.0 % Lymphocytes (%) (Auto) 47.3 21.0-51.0 % Monocytes (%) (Auto) 8.0 3.0-13.0 % Eosinophils (%) (Auto) 2.1 0.0-8.0 % Basophils (%) (Auto) 1.1 0.0-5.0 % Neutrophils # (Auto) 2.2 1.8-7.7 K/uL Lymphocytes # (Auto) 2.5 1.0-4.8 K/uL Monocytes # (Auto) 0.4 0.1-1.0 K/uL Eosinophils # (Auto) 0.11 0.00-0.70 K/uL Basophils # (Auto) 0.06 0.00-0.20 K/uL Absolute Immature Granulocyte (auto 0.01 0-1 K/uL Nucleated Red Blood Cells 0.0 0.0-0.19 % Sodium Level 142 136-145 mmol/L Potassium Level 4.4 3.5-5.1 mmol/L Chloride Level 110 101-111 mmol/L Carbon Dioxide Level 27 21-32 mmol/L Blood Urea Nitrogen 12 7-18 mg/dL Creatinine 0.8 0.5-1.0 mg/dL Glomerular Filtration Rate Calc 77 >90 mL/min Random Glucose 77 # 70-105 mg/dL Uric Acid 2.7 2.6-7.2 mg/dL Total Calcium 8.2 L 8.5-10.1 mg/dL Magnesium Level 2.20 1.80-2.40 mg/dL Iron Level 28 L 50-170 mcg/dL Total Iron Binding Capacity 268 250-450 mcg/dL Percent Iron Saturation 10.4 L 22-44 % Ferritin 10 L 15-150 ng/mL Total Bilirubin 0.7 0.2-1.0 mg/dL Aspartate Amino Transf (AST/SGOT) 49 H 10-37 U/L Alanine Aminotransferase (ALT/SGPT) 58 12-78 U/L Alkaline Phosphatase 91 50-136 U/L Total Protein 5.0 L 6.0-8.3 g/dL Albumin 2.3 L 3.5-5.0 g/dL Thyroid Stimulating Hormone (TSH) 0.91 0.36-3.74 uIU/mL B-Type Natriuretic Peptide 169 H 0-100 pg/mL Urine Color COLORLESS YELLOW Urine Appearance CLEAR CLEAR Urine pH 7.0 5.0-8.0 Urine Specific [place] 1.005 1.001-1.031 Urine Protein NEGATIVE NEGATIVE mg/dL Urine Glucose (UA) NEGATIVE NEGATIVE mg/dL Urine Ketones NEGATIVE NEGATIVE mg/dL Urine Occult Blood NEGATIVE NEGATIVE Urine Nitrate NEGATIVE NEGATIVE Urine Bilirubin NEGATIVE NEGATIVE mg/dL Urine Urobilinogen 0.2 0.2-1.0 mg/dL Urine Leukocyte Esterase NEGATIVE NEGATIVE Mauricio/uL Current Medications Medications (Trade) Dose Ordered Sig/Deja Route PRN Reason Start Time Stop Time Status Last Admin Dose Admin Acetaminophen (TYLenol 325MG TAB) 650 mg Q6H PRN PO MILD PAIN (1-3) 06/22/25 13:30 07/22/25 13:29 Aripiprazole (AbiliFY 5MG TABLET) 5 mg HS PO 06/22/25 21:00 07/22/25 20:59 06/22/25 21:30 5 MG Atorvastatin Calcium (LIPItor 40MG) 80 mg HS PO 06/22/25 21:00 07/22/25 20:59 06/22/25 21:29 80 MG Duloxetine HCl (CymbALTA 30 mg CAP) 60 mg DAILY PO 06/23/25 09:00 07/23/25 08:59 06/23/25 07:53 60 MG Home Med (Home Medication) (Biotin 10 MG) BID PO 06/22/25 21:00 07/22/25 20:59 Lactated Ringer's 1,000 ml @ 50 mls/hr Q20H IV 06/22/25 13:00 07/22/25 12:59 06/23/25 06:26 50 MLS/HR Levothyroxine Sodium (SYNTHroid 50MCG TAB) 50 mcg SYN PO 06/23/25 06:30 07/23/25 06:29 06/23/25 06:19 50 MCG Magnesium Sulfate 50 ml @ 0 mls/hr PROTOCOL IV 06/22/25 13:30 07/22/25 13:29 Miscellaneous Medication (Famotidine ) 40 mg DAILY PO 06/23/25 09:00 06/22/25 13:17 DC Ondansetron HCl (zoFRAN 4MG INJ) 4 mg Q6H PRN IVP NAUSEA/VOMITING 06/22/25 13:30 07/22/25 13:29 Pantoprazole Sodium (PROTonix 40MG TAB) 40 mg BID PO 06/22/25 21:00 07/22/25 20:59 06/23/25 07:53 40 MG Potassium Chloride 100 ml @ 100 mls/hr AD PRN IV POTASSIUM PROTOCOL 06/22/25 13:00 07/22/25 12:59 06/22/25 21:31 100 MLS/HR Potassium Chloride (K-Dur/Klor-Con 20meq) 20 meq AD PRN PO POTASSIUM PROTOCOL 06/22/25 13:00 07/22/25 12:59 Potassium Chloride (KCl 10% Elixir 20meq/15ml) 20 meq AD PRN PO POTASSIUM PROTOCOL 06/22/25 13:00 07/22/25 12:59 06/23/25 04:15 20 MEQ Topiramate (TopaMAX) 150 mg BID PO 06/22/25 21:00 07/22/25 20:59 06/23/25 07:53 150 MG DIAGNOSTICS / RADIOLOGY: [ ] ASSESSMENT: Severe hypokalemia, POA History of recurrent hypokalemia requiring frequent hospitalizations, POA History of diuretic use as outpatient with Lasix, POA History of hypertension, POA 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 in setting of severe gastroesophageal reflux, 11/2024, POA hyperlipidemia, POA Bipolar disorder, POA Seizure disorder, POA Hypothyroidism, POA PLAN: Continue admission to cardiac telemetry floor Potassium will be aggressively repleted per protocol Consultation with Nephrology has been requested Diuretics with Lasix continued to be held 2D echocardiogram to assess LVEF, if patient has no history of heart failure, it may be prudent to decrease the dose of Lasix or it can be used as PRN to assist with management of lower extremity edema, instead of patient taking it daily, we will have Nephrology follow up as well All labs will be repeated in the morning, we will obtain iron panel We will keep patient on gentle IV hydration with LR at 50 mL/hour Discussed with patient to have family bring list of home medications so it can be reconciled and updated PT evaluation P.r.n. medications for fever, pain, nausea, constipation Further orders per hospital course MARIAMA ACEVEDO PAC Jun 23, 2025 09:39
--- NOTE | 2025-06-23 12:59 | NUR ---
DCP: INITIAL ASSESSMENT Patient lives with spouse. She has no home services or DME. Patient is able to complete ADLs independently and drives. PCP is Dr. Familia Velasco. Pharmacy is [facility] in [place]. Patient voiced no safety concerns regarding returning home and states she has no difficulty with housing or buying food. DCP is home.
[2025-06-23] MEDS ORDERED: COMPOUND IV MISC 1 EACH IVSOLN MISC PRN (14:00)
--- NOTE | 2025-06-23 14:26 | PN ---
NEPHROLOGY PROGRESS NOTE Date/Time Patient Seen: Jun 23, 2025 SUBJECTIVE: This is a 75-year-old previous history of hiatal hernia, GERD, hyperlipidemia, hypothyroidism, bipolar disorder, seizure disorder, history of recurrent hospitalization for hypokalemia He presented to the ER further evaluation of low potassium. Patient states that she had routine labs performed by PCP and she was noted to have significantly low potassium and was referred to the ER. Patient denies any active symptoms. She was admitted for management of [id number] hypokalemia. Potassium replacement has been ordered. Home medications were reviewed We are consulted for hypokalemia. Lasix has been discontinued Renal function is stable Potassium was noted Iron panel was noted He was seen in the medical floor, in no acute distress No family at the bedside Prognosis remains guarded REVIEW OF SYSTEMS: GENERAL: Negative for any nausea, vomiting, fevers, chills, or weight loss. NEUROLOGIC: Negative for any blurry vision, blind spots, double vision, facial asymmetry, dysphagia, dysarthria, hemiparesis, hemisensory deficits, vertigo, ataxia. HEENT: Negative for any head trauma, neck trauma, neck stiffness, photophobia, phonophobia, sinusitis, rhinitis. CARDIAC: Negative for any chest pain, dyspnea on exertion, paroxysmal nocturnal dyspnea, peripheral edema. PULMONARY: Negative for any shortness of breath, wheezing, COPD, or TB exposure. GASTROINTESTINAL: Negative for any abdominal pain, nausea, vomiting, bright red blood per rectum, melena. GENITOURINARY: Negative for any dysuria, hematuria, incontinence. INTEGUMENTARY: Negative for any rashes, cuts, insect bites. RHEUMATOLOGIC: Negative for any joint pains, photosensitive rashes, history of vasculitis or kidney problems. HEMATOLOGIC: Negative for any abnormal bruising, frequent infections or bleeding. Vital Signs (last 8hr) Date Time Temp Pulse Resp B/P (MAP) Pulse Ox O2 Delivery O2 Flow Rate FiO2 06/23/25 12:00 98.2 78 17 92/55 99 Room Air 06/23/25 08:00 98 Room Air* 0 21 06/23/25 08:00 98.1 73 17 88/57 98 Room Air PHYSICAL EXAM: GENERAL: Alert and oriented x 3. No acute distress. Well-nourished. EYES: EOMI. Anicteric. HENT: Moist mucous membranes. No scleral icterus. No cervical lymphadenopathy. LUNGS: Clear to auscultation bilaterally. No accessory muscle use. CARDIOVASCULAR: Regular rate and rhythm. No murmur. No JVD. ABDOMEN: Soft, non-tender and non-distended. No palpable masses. EXTREMITIES: No edema. Non-tender. SKIN: No rashes or lesions. Warm. NEUROLOGIC: No focal neurological deficits. CN II-XII grossly intact, but not individually tested. PSYCHIATRIC: Cooperative. Appropriate mood and affect. Current Medications Medications (Trade) Dose Ordered Sig/Deja Route PRN Reason Start Time Stop Time Status Last Admin Dose Admin Acetaminophen (TYLenol 325MG TAB) 650 mg Q6H PRN PO MILD PAIN (1-3) 06/22/25 13:30 07/22/25 13:29 Aripiprazole (AbiliFY 5MG TABLET) 5 mg HS PO 06/22/25 21:00 07/22/25 20:59 06/22/25 21:30 5 MG Atorvastatin Calcium (LIPItor 40MG) 80 mg HS PO 06/22/25 21:00 07/22/25 20:59 06/22/25 21:29 80 MG Duloxetine HCl (CymbALTA 30 mg CAP) 60 mg DAILY PO 06/23/25 09:00 07/23/25 08:59 06/23/25 07:53 60 MG Home Med (Home Medication) (Biotin 10 MG) BID PO 06/22/25 21:00 07/22/25 20:59 Lactated Ringer's 1,000 ml @ 50 mls/hr Q20H IV 06/22/25 13:00 07/22/25 12:59 06/23/25 06:26 50 MLS/HR Levothyroxine Sodium (SYNTHroid 50MCG TAB) 50 mcg SYN PO 06/23/25 06:30 07/23/25 06:29 06/23/25 06:19 50 MCG Magnesium Sulfate 50 ml @ 0 mls/hr PROTOCOL IV 06/22/25 13:30 07/22/25 13:29 Miscellaneous Medication (Famotidine ) 40 mg DAILY PO 06/23/25 09:00 06/22/25 13:17 DC Ondansetron HCl (zoFRAN 4MG INJ) 4 mg Q6H PRN IVP NAUSEA/VOMITING 06/22/25 13:30 07/22/25 13:29 Pantoprazole Sodium (PROTonix 40MG TAB) 40 mg BID PO 06/22/25 21:00 07/22/25 20:59 06/23/25 07:53 40 MG Potassium Chloride 100 ml @ 100 mls/hr AD PRN IV POTASSIUM PROTOCOL 06/22/25 13:00 07/22/25 12:59 06/22/25 21:31 100 MLS/HR Potassium Chloride (K-Dur/Klor-Con 20meq) 20 meq AD PRN PO POTASSIUM PROTOCOL 06/22/25 13:00 07/22/25 12:59 Potassium Chloride (KCl 10% Elixir 20meq/15ml) 20 meq AD PRN PO POTASSIUM PROTOCOL 06/22/25 13:00 07/22/25 12:59 06/23/25 13:25 20 MEQ Topiramate (TopaMAX) 150 mg BID PO 06/22/25 21:00 07/22/25 20:59 06/23/25 07:53 150 MG LABORATORY: [ ] Hematology Labs: Test 06/23/25 12:03 06/23/25 04:56 Range/Units Hemoglobin 9.0 L 12.0-16.0 g/dL Hematocrit 28.3 L 36-48 % White Blood Count 5.3 4.8-10.8 K/uL Red Blood Count 3.16 L 4.00-5.50 MIL/uL Mean Corpuscular Volume 92.1 79-99 fL Mean Corpuscular Hemoglobin 29.4 27.0-33.0 pg Mean Corpuscular Hemoglobin Concent 32.0 32.0-36.0 g/dL Red Cell Distribution Width 17.1 H 11.0-15.5 % Platelet Count 223 # 130-400 K/uL Mean Platelet Volume 9.6 7.5-10.5 fL Immature Granulocyte % (Auto) 0.2 0-1 % Neutrophils (%) (Auto) 41.3 40.0-77.0 % Lymphocytes (%) (Auto) 47.3 21.0-51.0 % Monocytes (%) (Auto) 8.0 3.0-13.0 % Eosinophils (%) (Auto) 2.1 0.0-8.0 % Basophils (%) (Auto) 1.1 0.0-5.0 % Neutrophils # (Auto) 2.2 1.8-7.7 K/uL Lymphocytes # (Auto) 2.5 1.0-4.8 K/uL Monocytes # (Auto) 0.4 0.1-1.0 K/uL Eosinophils # (Auto) 0.11 0.00-0.70 K/uL Basophils # (Auto) 0.06 0.00-0.20 K/uL Absolute Immature Granulocyte (auto 0.01 0-1 K/uL Nucleated Red Blood Cells 0.0 0.0-0.19 % Chemistry Labs: Test 06/23/25 12:03 06/23/25 04:56 06/22/25 08:40 Range/Units Potassium Level 3.8 3.5-5.1 mmol/L Sodium Level 142 136-145 mmol/L Chloride Level 110 101-111 mmol/L Carbon Dioxide Level 27 21-32 mmol/L Blood Urea Nitrogen 12 7-18 mg/dL Creatinine 0.8 0.5-1.0 mg/dL Glomerular Filtration Rate Calc 77 >90 mL/min Random Glucose 77 # 70-105 mg/dL Uric Acid 2.7 2.6-7.2 mg/dL Total Calcium 8.2 L 8.5-10.1 mg/dL Magnesium Level 2.20 1.80-2.40 mg/dL Iron Level 28 L 50-170 mcg/dL Total Iron Binding Capacity 268 250-450 mcg/dL Percent Iron Saturation 10.4 L 22-44 % Ferritin 10 L 15-150 ng/mL Total Bilirubin 0.7 0.2-1.0 mg/dL Aspartate Amino Transf (AST/SGOT) 49 H 10-37 U/L Alanine Aminotransferase (ALT/SGPT) 58 12-78 U/L Alkaline Phosphatase 91 50-136 U/L Total Protein 5.0 L 6.0-8.3 g/dL Albumin 2.3 L 3.5-5.0 g/dL Thyroid Stimulating Hormone (TSH) 0.91 0.36-3.74 uIU/mL B-Type Natriuretic Peptide 169 H 0-100 pg/mL DIAGNOSTICS / RADIOLOGY: [place] [address] [place] [id number] IMAGING REPORT Signed PATIENT: JOSE ESCAMILLA MR#: [id number] : 1950 SEX: F AGE: 75 LOCATION: [facility] ORDER 130 STATUS: ADM IN REPORT#: [id number] SERVICE [id number] REASON: lower extremity edema, r/o any DVT ORDERING PHYSICIAN: CECILIA ADKINS MD PROCEDURE: VENOUS SWAPNIL - US VENOUS DOPPLER BILATERAL EXAM: US for Deep Venous Thrombosis, bilateral Lower Extremity. CLINICAL HISTORY: Leg Pain and Swelling TECHNIQUE: Real-time ultrasound scan of the veins of the bilateral lower extremity with color Doppler flow, spectral waveform analysis and compression. COMPARISON: None provided. FINDINGS: DEEP VEINS: The common femoral, superficial femoral, and popliteal veins are echolucent and compressible. There is normal color Doppler flow throughout. The visualized calf veins appear patent. SOFT TISSUES: No popliteal fossa cyst or other abnormalities. IMPRESSION: No deep venous thrombosis evident on bilateral lower extremity examination. 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 We have reviewed external records in detail Start Venofer 300 mg IV daily x 3 doses. Discontinue Lasix. 1.5 L fluid restriction is recommended Potassium replacement has been ordered Require close monitoring of renal function and electrolytes Order CBC, CMP,and electrolytes in am Monitor blood pressure adjust medication doses as needed Avoid hypotensive episodes May use Dilaudid 0.5 mg IV every 6 hours as needed for severe pain Monitor blood sugars Strict intake, output, and daily weight should be monitored Will continue to monitor renal function, anemia, electrolytes Treatment plan discussed with patient Questions were answered We have discussed with the other team physicians in detail about the care plan We will continue to monitor the patient closely ATTESTATION BY PHYSICIAN I have seen and examined the patient. I reviewed the documentation, medical decision making, and treatment plan as noted by the mid-level provider above. I agree with the findings and plan of care. TAWNYA CROW MD, [facility] Jun 23, 2025 14:26
--- NOTE | 2025-06-23 22:33 | HMCSR ---
APPROVED REPORT EXAM: Two-dimensional and M-mode echocardiogram with Doppler and color Doppler. INDICATION ICD: Rule out cardiomyopathy, hypokalemia 2D Dimensions RVDd 3.3 cm LVEF(%) 52.8 (>50%) LVED Vol(simp.) 57.0 mL IVSd 0.7 (0.7-1.1cm) FS(%) 27 % LVES Vol(simp.) 18.0 mL LVDd 4.2 (3.8-5.6cm) LA (2D) 3.5 (1.6-4.0cm) LVEF(%, simp.) 68 % PWd 0.7 (0.7-1.1cm) Ao Root(2D) 2.9 (2.0-3.7cm) LA ESV INDEX (BP) 36.37 mL/m2 IVSs 0.8 cm LVOT diam 1.8 (1.8-2.4cm) LVDs 3.1 (2.5-4.0cm) IVC diam 1.8 cm PWs 1.2 cm Deformation Strain Apical 4 -19.4 % Apical 2 -21.5 % Apical 3 -18.1 % Global Strain -19.7 % M-Mode Dimensions EPSS 0.4 cm LA (MM) 4.1 (1.6-4.0cm) Ao Root(MM) 2.8 (2.0-3.7cm) Aortic Valve AoV Vmax 1.6 m/s Ao Peak GR 9.7 mmHg LVOT Vmax 1.2 m/s AoV VTI 0.3 m Ao Mean GR 4.7 mmHg LVOT VTI 0.23 m ISAIAH (VMAX) 1.85 cm2 ISAIAH (VTI) 1.9 cm2 Mitral Valve MV E Vmax 87.7 cm/s DECEL Time 253 ms MV A Vmax 86.6 cm/s P 1/2 T 65 ms E/A ratio 1.0 MVA (PHT) 3.4 cm2 TDI E/E' Medial 20.4 E/E' Lateral 10.7 Medial E' Peak V 4.30 cm/s Lateral E' Peak V 8.22 cm/s Tricuspid Valve TR Vmax 2.3 m/s RAP (EST) 3 mmHg RVSP 23.8 mmHg TR Peak GR 20.8 mmHg Left Ventricle The left ventricle is normal size. No regional wall motion abnormalities noted. Mild concentric left ventricular hypertrophy. Left ventricular systolic function is normal, estimated LVEF 60-65%. Stage I diastolic dysfunction. Right Ventricle The right ventricle is normal size. The right ventricular systolic function is normal. Atria The left atrium is mildly dilated, 36 mL/m. The right atrium size is normal. Aortic Valve Aortic valve is trileaflet. Trace aortic regurgitation. There is no aortic valvular stenosis. Mitral Valve Mild mitral annular calcification is noted. The leaflets are mildly thickened and calcified. Trace mitral regurgitation. There is no mitral valve stenosis. Tricuspid Valve The tricuspid valve is normal in structure. Trace tricuspid regurgitation. RVSP is 21 mmHg. Pulmonic Valve Pulmonic valve is not well visualized. Great Vessels The aortic root is normal in size. The IVC is normal in size and collapses >50% with inspiration. Pericardium There is no pericardial effusion. Other Information Quality : Adequate Conclusion The left atrium is mildly dilated, 36 mL/m. Mild concentric left ventricular hypertrophy. No regional wall motion abnormalities noted. Left ventricular systolic function is normal, estimated LVEF 60-65%. Stage I diastolic dysfunction. Trace aortic regurgitation. Trace mitral regurgitation. Trace tricuspid regurgitation. PASP is 24 mmHg. There is no pericardial effusion.
[2025-06-24 03:58] VITALS: BP 96/56; PULSE 68; RESP 18; TEMP 98
[2025-06-24 05:50] LABS: IMMATURE GRANULOCYTE ABSOLUTE 0.01 K/uL (0-1); NUCLEATED RED BLOOD CELLS 0.0 % (0.0-0.19); PLATELET COUNT (AUTO) 221 K/uL (130-400); RED BLOOD CELL COUNT(AUTO) 3.15 MIL/uL (4.00-5.50); RED CELL DISTRIBUTION WIDTH 17.3 % (11.0-15.5); WHITE BLOOD COUNT (AUTO) 4.7 K/uL (4.8-10.8)
[2025-06-24 05:54] LABS: ASPARTATE AMINOTRANSFERASE 46.0 U/L (10-37); CREATININE 0.7 mg/dL (0.5-1.0); GLOMERULAR FILTR. RATE CALC 90.0 mL/min (>90); GLUCOSE,RANDOM 84.0 mg/dL (70-105); SODIUM SERUM 143.0 mmol/L (136-145); TOTAL PROTEIN, SERUM 5.0 g/dL (6.0-8.3); UREA NITROGEN, BLOOD 11.0 mg/dL (7-18)
[2025-06-24 07:30] VITALS: O2SAT 100
[2025-06-24 08:00] VITALS: BP 95/55; PULSE 75; RESP 16; TEMP 98.4
[2025-06-24] MEDS: ENOXAPARIN SODIUM 30 MG/0.3 ML SQ SCH (08:11)
--- NOTE | 2025-06-24 11:01 | DS ---
Discharge Summary Hospital Course Summary: 75-year-old previous history of hiatal hernia, GERD, hyperlipidemia, hypothyroidism, bipolar disorder, seizure disorder, history of recurrent hospitalization for hypokalemia who presented to the ER further evaluation of low potassium. Patient states that she had routine labs performed by PCP and she was noted to have significantly low potassium and was referred to the ER. Patient denies any active symptoms. she denies any palpitations, shortness of breath, chest pain or myalgias. Patient states that she has a history of lower extremities swelling intermit tently and she takes outpatient Lasix. She is unable to recall the dose of Lasix. She has been taking Lasix for long time. She denies any history of heart failure or chronic kidney disease. Patient has been hospitalized previously around 3 times this year for recurrent hypokalemia. She has a previous history of sleeve gastrectomy and history of robotic associated Taniya-en-Y gastric bypass in 11/2024 due to severe acid reflux. Patient reports being on oral potassium supplementation as outpatient. She is unsure if she is followed by Nephrology as outpatient. On presentation to the hospital, patient was noted to be afebrile and hemodynamically stable. Labs on presentation showed WBC count of 8500, hemoglobin 11.2, platelet count of 969828. BMP showed sodium of 140, potassium of 2.6, chloride of 103, BUN of 12, creatinine of 0.8, magnesium 2.2 with BNP of 169. Patient will be admitted under hospitalist service for management of [id number] hypokalemia. Patient will be started on aggressive potassium replacement. Lasix will be stopped likely contributing towards the hypokalemia, consultation with Nephrology will be requested, and she will undergo further workup of recurrent hypokalemia recurrent hospitalization Assessment/Plan: ASSESSMENT: Severe hypokalemia, POA History of recurrent hypokalemia requiring frequent hospitalizations, POA History of diuretic use as outpatient with Lasix, POA History of hypertension, POA 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 in setting of severe gastroesophageal reflux, 11/2024, POA hyperlipidemia, POA Bipolar disorder, POA Seizure disorder, POA Hypothyroidism, POA PLAN: Continue admission to cardiac telemetry floor Potassium will be aggressively repleted per protocol Consultation with Nephrology has been requested Diuretics with Lasix continued to be held 2D echocardiogram to assess LVEF, if patient has no history of heart failure, it may be prudent to decrease the dose of Lasix or it can be used as PRN to assist with management of lower extremity edema, instead of patient taking it daily, we will have Nephrology follow up as well All labs will be repeated in the morning, we will obtain iron panel We will keep patient on gentle IV hydration with LR at 50 mL/hour Discussed with patient to have family bring list of home medications so it can be reconciled and updated PT evaluation P.r.n. medications for fever, pain, nausea, constipation Further orders per hospital course Home Medications: Active Scripts Pantoprazole Sodium (Protonix) 40 Mg Ectab, 40 MG PO BID for 30 Days, #60 TAB.EC [facility]/25 Cefdinir (Cefdinir) 300 Mg Capsule, 1 CAP PO BID for 7 Days, #14 CAP 0 Refills Prov:[facility]H [facility] 01/25/25 Reported Medications Potassium Chloride (Potassium Chloride) 10 Meq Tab.er.prt, 1 TAB PO BID for 30 Days, #30 TAB 0 Refills 11/27/24 [Nutraful Womans ] No Conflict Check, 480 MG PO BID 11/27/24 Biotin (Biotin) 10 Mg Tablet, 10 MG PO BID, TAB 11/27/24 Rosuvastatin Calcium (Crestor) 40 Mg Tab, 20 MG PO HS, TAB 06/19/24 Famotidine (Famotidine) 40 Mg Tablet, 40 MG PO DAILY, TAB 11/13/22 Duloxetine HCl (Cymbalta) 60 Mg Capsule.dr, 60 MG PO DAILY, CAP 11/13/22 Aripiprazole (Abilify) 5 Mg Tablet, 5 MG PO HS, TAB 11/13/22 Topiramate (Topiramate) 100 Mg Tablet, 150 MG PO BID, TAB 10/28/18 Levothyroxine Sodium (Levothyroxine Sodium) 50 Mcg Tablet, 50 MCG PO ACBKFST, TAB 10/28/18 MARIAMA ACEVEDO PAC Jun 24, 2025 11:01
[2025-06-24 12:00] VITALS: BP 95/54; PULSE 80; RESP 19; TEMP 98
--- NOTE | 2025-06-24 14:06 | NUR ---
DISCHARGE PIV'D DC'D PATIENT INFORMED OF NEW MEDICATION FERROUS SULFATE SENT TO HER PREFERRED PHARMACY. PATIENT INFORMED TO FOLLOW UP WITH PCP AND NEPHROLOGY. ALL QUESTIONS ANSWERED PRIOR TO DISCHARGE.
--- NOTE | 2025-06-24 14:10 | PN ---
NEPHROLOGY PROGRESS NOTE Date/Time Patient Seen: Jun 24, 2025 SUBJECTIVE: This is a 75-year-old previous history of hiatal hernia, GERD, hyperlipidemia, hypothyroidism, bipolar disorder, seizure disorder, history of recurrent hospitalization for hypokalemia He presented to the ER further evaluation of low potassium. Patient states that she had routine labs performed by PCP and she was noted to have significantly low potassium and was referred to the ER. Patient denies any active symptoms. She was admitted for management of [id number] hypokalemia. Potassium replacement has been ordered. Home medications were reviewed We are consulted for hypokalemia. Lasix has been discontinued Renal function electrolytes are stable Iron panel was noted, continues on IV iron He was seen in the medical floor, in no acute distress No family at the bedside Prognosis remains guarded REVIEW OF SYSTEMS: GENERAL: Negative for any nausea, vomiting, fevers, chills, or weight loss. NEUROLOGIC: Negative for any blurry vision, blind spots, double vision, facial asymmetry, dysphagia, dysarthria, hemiparesis, hemisensory deficits, vertigo, ataxia. HEENT: Negative for any head trauma, neck trauma, neck stiffness, photophobia, phonophobia, sinusitis, rhinitis. CARDIAC: Negative for any chest pain, dyspnea on exertion, paroxysmal nocturnal dyspnea, peripheral edema. PULMONARY: Negative for any shortness of breath, wheezing, COPD, or TB exposure. GASTROINTESTINAL: Negative for any abdominal pain, nausea, vomiting, bright red blood per rectum, melena. GENITOURINARY: Negative for any dysuria, hematuria, incontinence. INTEGUMENTARY: Negative for any rashes, cuts, insect bites. RHEUMATOLOGIC: Negative for any joint pains, photosensitive rashes, history of vasculitis or kidney problems. HEMATOLOGIC: Negative for any abnormal bruising, frequent infections or ble eding. Vital Signs (last 8hr) Date Time Temp Pulse Resp B/P (MAP) Pulse Ox O2 Delivery O2 Flow Rate FiO2 06/23/25 12:00 98.2 78 17 92/55 99 Room Air 06/23/25 08:00 98 Room Air* 0 21 06/23/25 08:00 98.1 73 17 88/57 98 Room Air PHYSICAL EXAM: GENERAL: Alert and oriented x 3. No acute distress. Well-nourished. EYES: EOMI. Anicteric. HENT: Moist mucous membranes. No scleral icterus. No cervical lymphadenopathy. LUNGS: Clear to auscultation bilaterally. No accessory muscle use. CARDIOVASCULAR: Regular rate and rhythm. No murmur. No JVD. ABDOMEN: Soft, non-tender and non-distended. No palpable masses. EXTREMITIES: No edema. Non-tender. SKIN: No rashes or lesions. Warm. NEUROLOGIC: No focal neurological deficits. CN II-XII grossly intact, but not individually tested. PSYCHIATRIC: Cooperative. Appropriate mood and affect. Current Medications Medications (Trade) Dose Ordered Sig/Deja Route PRN Reason Start Time Stop Time Status Last Admin Dose Admin Acetaminophen (TYLenol 325MG TAB) 650 mg Q6H PRN PO MILD PAIN (1-3) 06/22/25 13:30 07/22/25 13:29 Aripiprazole (AbiliFY 5MG TABLET) 5 mg HS PO 06/22/25 21:00 07/22/25 20:59 06/22/25 21:30 5 MG Atorvastatin Calcium (LIPItor 40MG) 80 mg HS PO 06/22/25 21:00 07/22/25 20:59 06/22/25 21:29 80 MG Duloxetine HCl (CymbALTA 30 mg CAP) 60 mg DAILY PO 06/23/25 09:00 07/23/25 08:59 06/23/25 07:53 60 MG Home Med (Home Medication) (Biotin 10 MG) BID PO 06/22/25 21:00 07/22/25 20:59 Lactated Ringer's 1,000 ml @ 50 mls/hr Q20H IV 06/22/25 13:00 07/22/25 12:59 06/23/25 06:26 50 MLS/HR Levothyroxine Sodium (SYNTHroid 50MCG TAB) 50 mcg SYN PO 06/23/25 06:30 07/23/25 06:29 06/23/25 06:19 50 MCG Magnesium Sulfate 50 ml @ 0 mls/hr PROTOCOL IV 06/22/25 13:30 07/22/25 13:29 Miscellaneous Medication (Famotidine ) 40 mg DAILY PO 06/23/25 09:00 06/22/25 13:17 DC Ondansetron HCl (zoFRAN 4MG INJ) 4 mg Q6H PRN IVP NAUSEA/VOMITING 06/22/25 13:30 1/4/26 13:29 Pantoprazole Sodium (PROTonix 40MG TAB) 40 mg BID PO 06/22/25 21:00 07/22/25 20:59 06/23/25 07:53 40 MG Potassium Chloride 100 ml @ 100 mls/hr AD PRN IV POTASSIUM PROTOCOL 06/22/25 13:00 07/22/25 12:59 06/22/25 21:31 100 MLS/HR Potassium Chloride (K-Dur/Klor-Con 20meq) 20 meq AD PRN PO POTASSIUM PROTOCOL 06/22/25 13:00 07/22/25 12:59 Potassium Chloride (KCl 10% Elixir 20meq/15ml) 20 meq AD PRN PO POTASSIUM PROTOCOL 06/22/25 13:00 07/22/25 12:59 06/23/25 13:25 20 MEQ Topiramate (TopaMAX) 150 mg BID PO 06/22/25 21:00 07/22/25 20:59 06/23/25 07:53 150 MG LABORATORY: [ ] Hematology Labs: Test 06/24/25 05:12 Range/Units White Blood Count 4.7 L 4.8-10.8 K/uL Red Blood Count 3.15 L 4.00-5.50 MIL/uL Hemoglobin 9.3 L 12.0-16.0 g/dL Hematocrit 29.5 L 36-48 % Mean Corpuscular Volume 93.7 79-99 fL Mean Corpuscular Hemoglobin 29.5 27.0-33.0 pg Mean Corpuscular Hemoglobin Concent 31.5 L 32.0-36.0 g/dL Red Cell Distribution Width 17.3 H 11.0-15.5 % Platelet Count 221 130-400 K/uL Mean Platelet Volume 9.8 7.5-10.5 fL Immature Granulocyte % (Auto) 0.2 0-1 % Neutrophils (%) (Auto) 45.4 40.0-77.0 % Lymphocytes (%) (Auto) 44.9 21.0-51.0 % Monocytes (%) (Auto) 7.5 3.0-13.0 % Eosinophils (%) (Auto) 0.9 0.0-8.0 % Basophils (%) (Auto) 1.1 0.0-5.0 % Neutrophils # (Auto) 2.1 1.8-7.7 K/uL Lymphocytes # (Auto) 2.1 1.0-4.8 K/uL Monocytes # (Auto) 0.4 0.1-1.0 K/uL Eosinophils # (Auto) 0.04 0.00-0.70 K/uL Basophils # (Auto) 0.05 0.00-0.20 K/uL Absolute Immature Granulocyte (auto 0.01 0-1 K/uL Nucleated Red Blood Cells 0.0 0.0-0.19 % Chemistry Labs: Test 06/24/25 05:12 06/23/25 04:56 Range/Units Sodium Level 143 136-145 mmol/L Potassium Level 4.0 3.5-5.1 mmol/L Chloride Level 111 101-111 mmol/L Carbon Dioxide Level 27 21-32 mmol/L Blood Urea Nitrogen 11 7-18 mg/dL Creatinine 0.7 0.5-1.0 mg/dL Glomerular Filtration Rate Calc 90 >90 mL/min Random Glucose 84 70-105 mg/dL Total Calcium 8.3 L 8.5-10.1 mg/dL Total Bilirubin 0.7 0.2-1.0 mg/dL Aspartate Amino Transf (AST/SGOT) 46 H 10-37 U/L Alanine Aminotransferase (ALT/SGPT) 59 12-78 U/L Alkaline Phosphatase 92 50-136 U/L Total Protein 5.0 L 6.0-8.3 g/dL Albumin 2.4 L 3.5-5.0 g/dL Uric Acid 2.7 2.6-7.2 mg/dL Magnesium Level 2.20 1.80-2.40 mg/dL Iron Level 28 L 50-170 mcg/dL Total Iron Binding Capacity 268 250-450 mcg/dL Percent Iron Saturation 10.4 L 22-44 % Ferritin 10 L 15-150 ng/mL Thyroid Stimulating Hormone (TSH) 0.91 0.36-3.74 uIU/mL DIAGNOSTICS / RADIOLOGY: [address] [address] IMAGING REPORT Signed PATIENT: JOSE ESCAMILLA MR#: [id number] : 1950 SEX: F AGE: 75 LOCATION: [facility] ORDER 1308 STATUS: ADM IN REPORT#: [id number] SERVICE 0000 REASON: r/o cardiomyopathy, hypokalemia ORDERING PHYSICIAN: CECILIA ADKINS MD PROCEDURE: ECHO [facility] - ECHO 2-D COMPLETE APPROVED REPORT EXAM: Two-dimensional and M-mode echocardiogram with Doppler and color Doppler. INDICATION ICD: Rule out cardiomyopathy, hypokalemia 2D Dimensions RVDd 3.3 cm LVEF(%) 52.8 (>50%) LVED Vol(simp.) 57.0 mL IVSd 0.7 (0.7-1.1cm) FS(%) 27 % LVES Vol(simp.) 18.0 mL LVDd 4.2 (3.8-5.6cm) LA (2D) 3.5 (1.6-4.0cm) LVEF(%, simp.) 68 % PWd 0.7 (0.7-1.1cm) Ao Root(2D) 2.9 (2.0-3.7cm) LA ESV INDEX (BP) 36.37 mL/m2 IVSs 0.8 cm LVOT diam 1.8 (1.8-2.4cm) LVDs 3.1 (2.5-4.0cm) IVC diam 1.8 cm PWs 1.2 cm Deformation Strain Apical 4 -19.4 % Apical 2 -21.5 % Apical 3 -18.1 % Global Strain -19.7 % M-Mode Dimensions EPSS 0.4 cm LA (MM) 4.1 (1.6-4.0cm) Ao Root(MM) 2.8 (2.0-3.7cm) Aortic Valve AoV Vmax 1.6 m/s Ao Peak GR 9.7 mmHg LVOT Vmax 1.2 m/s AoV VTI 0.3 m Ao Mean GR 4.7 mmHg LVOT VTI 0.23 m ISAIAH (VMAX) 1.85 cm2 ISAIAH (VTI) 1.9 cm2 Mitral Valve MV E Vmax 87.7 cm/s DECEL Time 253 ms MV A Vmax 86.6 cm/s P 1/2 T 65 ms E/A ratio 1.0 MVA (PHT) 3.4 cm2 TDI E/E' Medial 20.4 E/E' Lateral 10.7 Medial E' Peak V 4.30 cm/s Lateral E' Peak V 8.22 cm/s Tricuspid Valve TR Vmax 2.3 m/s RAP (EST) 3 mmHg RVSP 23.8 mmHg TR Peak GR 20.8 mmHg Left Ventricle The left ventricle is normal size. No regional wall motion abnormalities noted. Mild concentric left ventricular hypertrophy. Left ventricular systolic function is normal, estimated LVEF 60-65%. Stage I diastolic dysfunction. Right Ventricle The right ventricle is normal size. The right ventricular systolic function is normal. Atria The left atrium is mildly dilated, 36 mL/m. The right atrium size is normal. Aortic Valve Aortic valve is trileaflet. Trace aortic regurgitation. There is no aortic valvular stenosis. Mitral Valve Mild mitral annular calcification is noted. The leaflets are mildly thickened and calcified. Trace mitral regurgitation. There is no mitral valve stenosis. Tricuspid Valve The tricuspid valve is normal in structure. Trace tricuspid regurgitation. RVSP is 21 mmHg. Pulmonic Valve Pulmonic valve is not well visualized. Great Vessels The aortic root is normal in size. The IVC is normal in size and collapses >50% with inspiration. Pericardium There is no pericardial effusion. Other Information Quality : Adequate Conclusion The left atrium is mildly dilated, 36 mL/m. Mild concentric left ventricular hypertrophy. No regional wall motion abnormalities noted. Left ventricular systolic function is normal, estimated LVEF 60-65%. Stage I diastolic dysfunction. Trace aortic regurgitation. Trace mitral regurgitation. Trace tricuspid regurgitation. PASP is 24 mmHg. There is no pericardial effusion. DICTATED BY: DEBBIE DASILVA MD DATE: 06/23/25 1243 ELECTRONICALLY SIGNED BY: DEBBIE DASILVA MD DATE: 06/23/252232 PATIENT: JOSE ESCAMILLA MR#: [id number] : 1950 SEX: F AGE: 75 LOCATION: [facility] ORDER 1305 STATUS: ADM IN REPORT#: [id number] SERVICE 1303 REASON: lower extremity edema, r/o any DVT ORDERING PHYSICIAN: CECILIA ADKINS MD PROCEDURE: VENOUS SWAPNIL - US VENOUS DOPPLER BILATERAL EXAM: US for Deep Venous Thrombosis, bilateral Lower Extremity. CLINICAL HISTORY: Leg Pain and Swelling TECHNIQUE: Real-time ultrasound scan of the veins of the bilateral lower extremity with color Doppler flow, spectral waveform analysis and compression. COMPARISON: None provided. FINDINGS: DEEP VEINS: The common femoral, superficial femoral, and popliteal veins are echolucent and compressible. There is normal color Doppler flow throughout. The visualized calf veins appear patent. SOFT TISSUES: No popliteal fossa cyst or other abnormalities. IMPRESSION: No deep venous thrombosis evident on bilateral lower extremity examination. /[place] DICTATED BY: SUNSHINE RAMIREZ Jr., MD DATE: 06/22/251455 ELECTRONICALLY SIGNED BY: SUNSHINE RAMIREZ Jr., MD DATE: 06/22/251455 ASSESSMENT: Severe hypokalemia History of recurrent hypokalemia requiring frequent hospitalization Hypertension 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 in setting of severe gastroesophageal reflux, 11/2024, Hyperlipidemia Bipolar disorder Seizure disorder Hypothyroidism PLAN: Labs, diagnostic, radiologic exams reviewed and interpreted by myself and supervising physician. We have reviewed external records in detail From Nephrology standpoint, patient may be discharged Follow up in the renal clinic 1-2 weeks Do not resume Lasix Low-sodium diet and 1.5 L fluid restriction is recommended, discussed with the patient 1.5 L fluid restriction is recommended Monitor blood pressure adjust medication doses as needed Avoid hypotensive episodes May use Dilaudid 0.5 mg IV every 6 hours as needed for severe pain Monitor blood sugars Strict intake, output, and daily weight should be monitored Will continue to monitor renal function, anemia, electrolytes Treatment plan discussed with patient Questions were answered We have discussed with the other team physicians in detail about the care plan We will continue to monitor the patient closely ATTESTATION BY PHYSICIAN I have seen and examined the patient. I reviewed the documentation, medical decision making, and treatment plan as noted by the mid-level provider above. I agree with the findings and plan of care. TAWNYA CROW MD, [facility] Jun 24, 2025 14:10
--- NOTE | 2025-06-25 22:26 | CONS ---
NEPHROLOGY CONSULTATION REASON FOR CONSULTATION: Electrolyte problem and multiple other comorbidities. No other associated symptoms. No other aggravating or relieving factors. HISTORY OF PRESENT ILLNESS: The patient is brought to the Emergency Room with low potassium. She takes diuretics. All the other systemic review is unchanged. The patient is weak. The patient does have underlying history of intake of diuretics. PAST MEDICAL HISTORY: Hiatal hernia, GERD, hyperlipidemia, hypothyroidism, bipolar disorder, seizure reported. PAST SURGICAL HISTORY: Sleeve gastrectomy with revision done before and reflux before. FAMILY HISTORY: Noncontributory. No kidney stone problems. SOCIAL HISTORY: Denies any smoking, alcohol, or drug abuse. REVIEW OF SYSTEMS: CONSTITUTIONAL: Has been weak. No fever, chills, or rigors. HEENT: No headache. No oral ulcers or sore throat or difficulty swallowing. RESPIRATORY: No cough, expectoration, hemoptysis or pleuritic pain. CARDIOVASCULAR: Mild shortness of breath, no orthopnea or PND. GASTROINTESTINAL: No nausea or vomiting, but has reflux and previous gastric sleeve surgery. GENITOURINARY: Negative for hematuria. DERMATOLOGIC: No rashes, pruritic skin lesion. ENDOCRINE: No polyuria or dysuria or polyphagia. PSYCHIATRIC: Negative for anxiety, depression, hallucinations. Other systemic review is unchanged. PHYSICAL EXAMINATION: GENERAL: The patient is in no other distress. VITAL SIGNS: Blood pressure is 100/57, pulse 75, respiratory rate is 18, afebrile. HEENT: Head is atraumatic, normocephalic. Pupils are round and reactive. Sclerae are anicteric. Conjunctivae not pale. Oral mucosa is not dry. NECK: Supple. No mass or bruits. No thyromegaly. Neck has no bruits. CHEST: Shows diminished breath sounds at both bases, prolonged respiration. Percussion note being resonant to percussion in all areas. CARDIAC: Regular rhythm. No rub, no S3, no S4. No parasternal heave. Precordial beat is not localized. ABDOMEN: Soft. No guarding or tenderness. Bowel sounds are present. No free fluid. EXTREMITIES: With no edema. No cyanosis, clubbing. BACK: No tenderness or back deformities. LYMPHATIC: With no lymph node swelling in the neck or axillary. NEUROLOGIC: Awake, alert, nonfocal. No cranial nerve palsy. No cranial nerve palsy. BACK: No tenderness or back deformities. SKIN: No other petechiae, rash noted on inspection or palpation. LABORATORY DATA: The patient's labs have been reviewed in detail. Low hemoglobin of 11.2, hematocrit is 34. Potassium has been extremely low up to 2.1 before. BUN of 12, creatinine is 0.8. BNP is 169, and we have reviewed the urine, which has shown no significant proteinuria. IMAGING STUDIES: Imaging studies are personally reviewed. Venous Doppler study is negative. The patient has undergone upper GI series. No obstruction. Moderate-sized hiatal hernia is present. The patient has a previous abdominal pelvic CT with no evidence of any other findings except hiatal hernia. The patient also has underlying renal ultrasound in the past, which has been no hydronephrosis before. I have reviewed the other labs in detail. The patient has imaging studies personally reviewed. PROBLEMS: * Severe hypokalemia. * The patient has underlying hiatal hernia * History of sleeve gastrectomy before. * Volume depletion reported before. * Esophagitis * Underlying hyperlipidemia * Bipolar disorder * History of seizures * History of hypothyroidism * Multiple other comorbidities * Mild anemia PLAN AND RECOMMENDATIONS: * I will suggest a urine electrolyte, urine sodium, potassium, chloride, creatinine, osmolality. * Lasix diuresis should be stopped. * If diuretics are needed eventually, potassium-sparing diuretics may be indicated. * The patient will get magnesium level checked and magnesium should be replaced as needed. * Avoid nonsteroidal drugs. * The patient has been on thyroid replacement. Will continue. * Repeat thyroid test. * Anti-lipid continue. * The patient will have a followup on electrolyte and blood pressure again. Follow-up labs have been ordered. Meanwhile, I have discussed with the physician. Old record, external records reviewed. I have reviewed the labs and imaging studies personally interpreted them and I have discussed with the team physicians in detail. Old records have been reviewed in detail. Condition remains critical and guarded. Repeated labs will be needed. Thank you for this patient. TID: [id number] RECEIPT: [id number]
== END 2025-06-24 14:20 | disposition home or self-care (01) ==
LOC: EDH 08:19 → INTOOBSV 12:47 → UNDOADMOB 12:47 → EDHIP 12:47 → 4BH 16:30 → INTOOBSV 06-24 09:00 → OBSVTOIN 06-24 09:00 → 4BH 06-24 09:00
PROVIDERS: ADMIT Internal Medicine; ATTEND Internal Medicine
DX: E87.6 Hypokalemia (principal); E86.9 Volume depletion, unspecified; E78.5 Hyperlipidemia, unspecified; E03.9 Hypothyroidism, unspecified; F31.9 Bipolar disorder, unspecified; G40.909 Epilepsy, unspecified, not intractable, without status epilepticus; I10 Essential (primary) hypertension; K21.00 Gastro-esophageal reflux disease with esophagitis, without bleeding; K44.9 Diaphragmatic hernia without obstruction or gangrene; D64.9 Anemia, unspecified; R60.0 Localized edema; Z79.899 Other long term (current) drug therapy; Z98.890 Other specified postprocedural states
CPT/HCPCS: 96361 ×3; 96365; 96366 ×2; 99285; 83735 ×2; 84132 ×2; 80048 ×2; 83880; 85027; 81003; 36415 ×3; 93970; 96367; 84443; 83540; 83550; 84550; 80053 ×2; 82728; 85025 ×2; 85014; 85018; 93306; 93356; 97161; 97116; 97530 ×2; J3480 ×2; J7120; J1756; J7050; G0378 ×5; J1650; 96360